=== PATIENT | male | born 1965 | race Caucasian/White ===

== ENCOUNTER 2023-04-15 14:11 | Inpatient (IN) | payer OTHER ==
[2023-04-15 14:42] VITALS: RESP 18; BMI 24.0
[2023-04-15] MEDS ORDERED: NALOXONE HCL (KLOXXADO) 8 MG SPRAY NS PRN (15:27)
[2023-04-15] MEDS ORDERED: guaiFENesin 600 MG TABLET.ER (FP) PO PRN (15:27)
[2023-04-15] MEDS ORDERED: IBUPROFEN 600 MG TABLET (FP) PO PRN (15:27)
[2023-04-15] MEDS ORDERED: POLYETHYLENE GLYCOL (HEALTHYLAX) 3350 17 GM PACKET PO PRN (15:27)
[2023-04-15] MEDS ORDERED: BENZOCAINE/MENTHOL (CHLORASEPTIC ) LOZENGE MM PRN (15:27)
[2023-04-15] MEDS ORDERED: MAGNESIUM HYDROX 2400MG/30ML ORAL SUSPENSION 30 ML CUP PO PRN (15:27)
[2023-04-15] MEDS ORDERED: NALOXONE HCL 0.4 MG/ML VIAL IM PRN (15:27)
[2023-04-15] MEDS ORDERED: MAG HYDROX/AL HYDROX/SIMETH 30 ML UNIT-DOSE CUP PO PRN (15:27)
[2023-04-15] MEDS ORDERED: IBUPROFEN 400 MG TABLET (FP) PO PRN (15:27)
[2023-04-15] MEDS ORDERED: hydrOXYzine PAMOATE 25 MG CAPSULE (FP) PO PRN (15:27)
[2023-04-15] MEDS ORDERED: COLLOIDAL OATMEAL 1 BAR EACH TP PRN (15:27)
[2023-04-15] MEDS ORDERED: ACETAMINOPHEN 325 MG TABLET (FP) PO PRN (15:27)
[2023-04-15] MEDS ORDERED: BENZONATATE 200 MG CAPSULE PO PRN (15:27)
[2023-04-15] MEDS ORDERED: LOPERAMIDE HCL 2 MG CAPSULE PO PRN (15:27)
[2023-04-15] MEDS ORDERED: PRENATAL VITAMINS W/ FOLIC ACID TABLET (FP) PO SCH (15:30)
[2023-04-15 20:13] VITALS: BP 131/78; PULSE 86; TEMP 96.6
[2023-04-15] MEDS ORDERED: THIAMINE HCL 100 MG TABLET (FP) PO SCH (22:00)
[2023-04-15] MEDS ORDERED: MELATONIN 5 MG TABLETS PO SCH (22:00)
[2023-04-16] MEDS ORDERED: NICOTINE 14 MG/24 HOURS TOPICAL PATCH TD SCH (10:00)
== END 2023-04-15 22:30 | disposition left against medical advice (07) | DRG 894 ==
LOC: YASAS 14:11 → Y5N 18:59
PROVIDERS: ADMIT Allergy & Immunology; ATTEND Psychiatry & Neurology Pain Medicine
PROC: HZ42ZZZ Group Counseling for Substance Abuse Treatment, Cognitive-Behavioral (ICD-10-PCS; principal; 2023-04-15)
DX: F10.20 Alcohol dependence, uncomplicated (principal); F14.20 Cocaine dependence, uncomplicated; F12.20 Cannabis dependence, uncomplicated; F17.210 Nicotine dependence, cigarettes, uncomplicated; F25.9 Schizoaffective disorder, unspecified; E78.5 Hyperlipidemia, unspecified; K21.9 Gastro-esophageal reflux disease without esophagitis
CPT/HCPCS: 87635